=== PATIENT | male | born 2000 | race Caucasian/White ===

== ENCOUNTER 2019-06-09 16:25 | Emergency (ER) | payer OTHER ==
[~2019-06-09] VITALS: Ht 177.8 cm; Wt 72.7 kg
[2019-06-09 16:26] VITALS: BP 148/74
[2019-06-09] MEDS ORDERED: IBUP-1022 PO (16:35)
[2019-06-09] MEDS ORDERED: LIDOCAINE 2% W/EPIN INJ 20ML **PRES FREE INJ ONE (19:15)
[2019-06-09] MEDS ORDERED: BACTRIM 160MG/800MG DS TAB PO ONE (20:00)
[2019-06-09] MEDS ORDERED: BACT800T5 PO (20:01)
== END 2019-06-09 20:09 | disposition home or self-care (01) ==
LOC: M ED 16:25
DX: L02.31 Cutaneous abscess of buttock (principal); F17.200 Nicotine dependence, unspecified, uncomplicated; Z88.0 Allergy status to penicillin